=== PATIENT | male | born 1980 | race Caucasian/White ===

== ENCOUNTER 2024-01-05 08:08 | Outpatient (CLI) | payer OTHER ==
--- NOTE | 2024-01-05 09:15 | XRAY Report ---
PROCEDURE: Shoulder 2+V LT INDICATIONS: SPRAIN OF LEFT ACROMIOCLAVICULAR JOINT TECHNIQUE: 3 views of the shoulder were acquired. COMPARISON: None. FINDINGS: Bones: No fractures or dislocations. No widening of the acromioclavicular joint. Mild acromioclavicu lar joint osteoarthritic changes. No suspicious bony lesions. Visualized ribs appear intact. Soft tissues: No suspicious soft tissue calcifications. The visualized lungs are within normal limi ts. IMPRESSION: No acute bony abnormality. There is no significant widening of the acromioclavicular joint. Reviewed by: Sin Tapia MD on 01/05/2024 9:14 AM PST Approved by: Sin Tapia MD on 01/05/2024 9:14 AM PST Station ID: [id number]
== END 2024-01-05 08:09 | disposition home or self-care (01) ==
LOC: DI 08:08
PROVIDERS: ATTEND Physician Assistant Medical
DX: S43.52XA Sprain of left acromioclavicular joint, initial encounter (principal)